=== PATIENT | male | born 1950 | race Caucasian/White ===

== ENCOUNTER → 2020-11-05 09:47 | Outpatient (CLI) | payer MEDICARE, BC, SELFPAY ==
--- NOTE | 2020-11-05 | DI.US.S_ITS ---
PROCEDURE: US ABDOMEN COMPLETE INDICATIONS: LIVER MASS TECHNIQUE: Real-time scanning was performed of the abdominal and retroperitoneal organs, with image documentation. COMPARISON: Outside Film, CT, CT ABDOMEN PELVIS WITHOUT CONTRAST, 03/25/2019, 14:57. Outside Film, CT, CT ABDOMEN PELVIS WITH CONTRAST, 08/15/2020, 14:37. [facility], US, US BIOPSY LIVER, 08/21/2020, 8:22. FINDINGS: Liver: Liver is normal in size and homogeneous in echotexture. Liver masses seen on prior imaging not visualized on today's examination. Gallbladder: Surgically absent. Biliary ducts: Intrahepatic bile ducts are non-dilated. Extrahepatic bile duct caliber measures 3.6 mm. Normal is 6-7 mm or less in diameter, or 10 mm or less post-cholecystectomy. Pancreas: Visualized portions of the pancreas are sonographically normal. Spleen: Spleen is normal in size and homogeneous in echotexture. Kidneys: Kidneys are normal in size and echotexture. Right kidney measures 11.8 cm long; left kidney measures 11.9 cm long. No hydronephrosis. No solid masses. Bilateral renal cyst redemonstrated, largest measuring up to 5.1 cm. Nonobstructing inferior pole right renal calcification redemonstrated. Aorta: Visualized aorta is normal in caliber at less than 3 cm. Iliacs: Proximal common iliac arteries are normal in caliber at less than 2.5 cm. IVC: Intrahepatic inferior vena cava is patent. Miscellaneous: No free abdominal fluid. IMPRESSION: 1. Previously visualized hepatic masses not seen on today's examination. If indicated, hepatic protocol CT or MR could be performed. 2. Bilateral renal cyst and nonobstructing right renal calcification redemonstrated. Dictated by: Gui [facility] Interpreted: Ok Bledsoe MD on 11/05/2020 at 11:22 Approved by: Ok Bledsoe M.D. on 11/05/2020 at 17:29
== END ==
PROVIDERS: PCP Family Medicine; Referring Provider Internal Medicine Gastroenterology; Visit Provider Internal Medicine Gastroenterology
DX: N28.1 Cyst of kidney, acquired (principal); K76.89 Other specified diseases of liver
CPT/HCPCS: 76700

== ENCOUNTER → 2020-11-30 16:10 | Outpatient (CLI) | payer MEDICARE, BC, SELFPAY ==
[2020-11-30 16:55] LABS: COVID19 -Nasal RAPID Negative (Negative)
== END ==
PROVIDERS: PCP Family Medicine; Visit Provider Physician Assistant
DX: Z20.822 Contact with and (suspected) exposure to COVID-19 (principal)
CPT/HCPCS: 87635

== ENCOUNTER 2020-12-01 09:05 | Day surgery (SDC) | payer MEDICARE, BC, SELFPAY ==
--- NOTE | 2020-12-01 | PATH_ITS ---
[facility] Accession Number: [id number] . 01 Material submitted: . PART A: esophagus - DISRUPTIVE SCHATZKI'S RING BIOPSIES PART B: gastrointestinal site - ANTRAL BIOPSY PART C: esophagus - MID ESOPHAGUS BIOPSIES PART D: colon - TRANSVERSE COLON POLYP BIOPSY . 01 Clinical history: . SDC . 02 Diagnosis: A. Schatzki's Ring, Biopsies: Squamocolumnar junctional mucosa with reactive features of reflux esophagitis. Negative for specialized intestinal metaplasia and fungal organisms on AB/PAS stain. Negative for dysplasia or malignancy. . B. Antrum, Biopsy: Gastric antral mucosa with mild chronic inflammation. Negative for Helicobacter organisms by immunohistochemistry. Negative for intestinal metaplasia. Negative for dysplasia or malignancy. . C. Mid Esophagus, Biopsies: Squamous mucosa with increased intraepithelial eosinophils (greater than 50 eosinophils). See comment. Negative for dysplasia and malignancy. . D. Transverse Colon Polyp, Biopsy: Tubular adenoma. [facility] 12/04/2020 1546 Local . 02 Comment: C. In the proper clinical setting, the histopathologic appearance would support a clinical impression of eosinophilic esophagitis. The differential diagnosis includes drug reaction, gastroesophageal reflux, and food allergies. . . 02 Electronically signed: . Alden Sousa MD, PhD, Pathologist NPI- [id number] . 01 Gross description: . Part A: DISRUPTIVE SCHATZKI'S RING BIOPSIES: Received in formalin are 4 fragment(s) of christian, soft tissue measuring 0.5 x 0.3 x 0.1 cm to 0.3 x 0.2 x 0.1 cm submitted entirely in 1 cassette(s) Part B: ANTRAL BIOPSY: Received in formalin are 2 fragment(s) of christian, soft tissue measuring 0.3 x 0.2 x 0.1 cm to 0.1 x 0.1 x 0.1 cm submitted entirely in 1 cassette(s) Part C: MID ESOPHAGUS BIOPSIES: Received in formalin are multiple fragment(s) of christian, soft tissue measuring 1.1 x 0.2 x 0.1 cm in aggregate submitted entirely in 1 cassette(s) Part D: TRANSVERSE COLON POLYP BIOPSY: Received in formalin are 2 fragment(s) of christian, soft tissue measuring 0.2 x 0.2 x 0.2 cm to 0.2 x 0.1 x 0.1 cm submitted entirely in 1 cassette(s) /LIUDMILA 12/02/2020 0144 Local . 02 Microscopic: . A. An AB/PAS stain is negative for goblet cells and fungal organisms. A control stain shows appropriate reactivity. . B. An immunohistochemical stain was performed to evaluate for Helicobacter organisms and is negative. The control stain showed appropriate reactivity. . C. An AB/PAS stain is performed to evaluate for fungal organisms and is negative. A control stain shows appropriate reactivity. . * This test was developed and its performance characteristics determined by [facility]. It has not been cleared or approved by the U.S. Food and Drug Administration. The FDA has determined that such clearance or approval is not necessary. This test is used for clinical purposes. It should not be regarded as investigational or for research. . 02 Pathologist provided ICD-10: K29.70, K20.0, D12.3 . 02 CPT . 812990, 054678, 654391, 445521, 022595, 613237, [id number] Performed at: 01 [facility] [address] [facility], [place], [place] [id number] MD Hood Riggs MD Phone: [phone] Performed at: 02 [facility] [address] [place], [place] [id number] MD Josie Kaur MD Phone: [phone]
[2020-12-01 09:33] VITALS: BP 144/84; PULSE 61; RESP 18; TEMP 36.3; O2SAT 100; BMI 28.8
[2020-12-01] MEDS: SODIUM CHLORIDE 0.9% 1,000 ML 84 ML IV (09:47)
--- NOTE | 2020-12-01 10:31 | PM.HP.1 ---
History of Present Illness History of Present Illness Date Patient Seen: 12/01/20 Time Patient Seen: 10:31 Chief complaint: SDC Narrative: I reviewed my H& P from October 12, 2020 no major changes. The patient did have an episode of significant esophageal food impaction in recent memory that took 5 hours to dislodge. Patient History Family & Social History Social History: household members spouse Tobacco & Substance use: Smoking Status Never smoker alcohol intake current alcohol intake frequency a few times a month Substance Use Type does not use Meds Home Medications and Allergies Home Medications Medication Instructions Recorded Confirmed Type No Known Home Medications 12/01/20 12/01/20 History Allergies Allergy/AdvReac Type Severity Reaction Status Date / Time Penicillins Allergy Verified 12/01/20 09:30 Review of Systems Review of Systems ROS: Yes All systems reviewed with the patient and are negative except as otherwise documented Exam Vital Signs (past 8 hours): - 12/01/20 09:33 Temperature 97.4 F L Pulse Rate 61 Respiratory Rate 18 Blood Pressure 144/84 H Pulse Oximetry 100 Oxygen Delivery Method Room Air Const General: cooperative and comfortable Orientation: alert HENOH Head: normocephalic Ears: external ears normal Nose: external nose normal Face and sinus: normal facial exam Mouth: oral mucosae normal Eyes General: appearance normal, both eyes and all related structures Neck Neck: normal visual inspection Chest Chest: normal inspection of the chest Resp Effort & Inspection: normal respiratory effort Auscultation: clear to auscultation bilaterally Cardio Rate: regular rate Rhythm: regular rhythm Heart Sounds: no murmurs GI Inspection: normal to inspection Palpation: soft and No tender Auscultation: normal bowel sounds Skin General: no rashes or lesions noted and No jaundice Neuro General: patient alert and moves all extremities Cognition: normal cognition Speech: speech normal Extrem General: no pedal edema Psych Appearance: grossly normal Assessment & Plan Assessment & Plan narrative: History of dysphagia. Personal history of diverticulitis and abnormal imaging. EGD and colonoscopy are pursued today. Time Spent With Patient Critical Care time: I spent a total of [] minutes of critical care time on this patient's care today; this time is exclusive of procedural time.
--- NOTE | 2020-12-01 10:32 | PM.PREOP ---
Pre-operative Note COVID-19 COVID-19 status: Negative Result date/Date tested (Pos, Neg/Pending): 11/30/20 Interval Note History & Physical reviewed/Exam performed by Physician: Yes Changes to H&P: No ASA Class (for procedural sedation): II
--- NOTE | 2020-12-01 11:23 | PM.OP.EC ---
Operative Date/Time/Diagnoses Date of procedure: 12/01/20 Time of procedure: 11:23 Pre-op diagnosis: Dysphagia recent diverticulitis abnormal imaging Post-op diagnosis: same Procedure & Clinicians Study performed: EGD with biopsy and balloon dilatation Colonoscopy with cold forceps polypectomy Same procedure as scheduled: Yes Indications: Dysphagia abnormal imaging recent diverticulitis Surgeon: Smooth Lee Procedure Notes SCOAP/Timeout: Done Procedure in detail: After the risks and benefits were explained, written and verbal informed consent was obtained. The patient was brought into the procedure room and placed into the left lateral decubitus position. Please see nurse payroll assistant sedation notes. The scope was introduced into the mouth through the bite block and advanced under direct visualization to the 2nd portion of the duodenum. The scope was slowly withdrawn carefully examining the mucosa for any defects or lesions. Retroflexed views were accomplished in the stomach. The stomach was decompressed, the scope was then removed from the patient who tolerated the procedure well. Patient was then turned around a digital rectal examination accomplished grade 3 and grade 4 internal nonbleeding nonthrombosed hemorrhoids were noted. The scope was introduced into the rectum and advanced to the cecum as identified by the appendiceal orifice and ileocecal valve. The scope was slowly withdrawn to carefully examine the mucosa for any defects or lesions. Multiple direct views were made through the dentate line for exclusion of pathology the colon was decompressed scope removed from the patient who tolerated the procedure well. Adult colonoscope Bowel prep adequate Scope withdrawal time: 8 minutes Sedation minutes: 35 Complications: none Impression: 1. Duodenum no overt pathology appreciated from the bulb through to the 2nd portion. There was however a large duodenal diverticulum in the region of the major papilla. 2. Stomach: Patient had erythema in the antrum. No ulcers no mass lesions no outlet obstruction. Antral biopsies were taken for exclusion of Helicobacter or other pathology. Otherwise retroflexed views of the LES were unremarkable. 3. Esophagus: The patient had a Schatzki's ring at the level of GE junction which was at approximately 38 cm from the incisors. We attempted to dilate with a 12-15 mm balloon assembly. The 1st balloon perforated at the 12 mm erica. We had clearly dilated a small amount. I passed a 2nd balloon and this also perforated even before we are able to get up to the full 12 mm setting. I therefore abandoned further balloon dilatation and used biopsy forceps to perform disruptive biopsies multiple times at the level of the ring that had already been disrupted by the balloon. Overall a dilatation affect appear to be mild to moderate. There was a very subtle sliding hiatal hernia present. The more proximal esophagus demonstrated numerous circumferential tight rings suggestive of underlying eosinophilic esophagitis and therefore midesophageal biopsies were taken at random as well. 4. Colon: There was some scattered diverticula in the left colon. No mass lesions. There was a diminutive polyp perhaps 4 mm removed with cold forceps in the transverse. The patient had grade 3 to grade 4 non thrombosed nonbleeding hemorrhoids. Endoscopic diagnosis 1. Duodenal diverticulum 2. Gastropathy 3. Subtle sliding hiatal hernia 4. Schatzki's ring status post balloon dilatation and disruptive biopsies 5. Ringed esophagus 6. Diverticulosis 7. Grade 3 to grade 4 hemorrhoids 8. Colon polyp Post-procedure Plan for aftercare: 1. Await histopathology 2. Continue well chewed food in small bites. 3. Follow up GI clinic in 6 weeks to review response 4. Repeat colonoscopy 5 years. Disposition: PACU
[2020-12-01 11:27] VITALS: BP 116/65; PULSE 52; RESP 11; TEMP 36.2; O2SAT 98
[2020-12-01 11:32] VITALS: BP 126/70; PULSE 53; RESP 11; O2SAT 99
[2020-12-01 11:42] VITALS: BP 145/72; PULSE 58; RESP 16; O2SAT 98
[2020-12-01 11:53] VITALS: BP 148/80; PULSE 50; RESP 11; TEMP 36.7; O2SAT 99
--- NOTE | 2020-12-01 11:56 | SUR.PHASEI ---
Patient drinking orange juice without difficulty but states that his throat kemp a bit; report given to Sharonda for Phase II.
[2020-12-01 12:15] VITALS: BP 158/86; PULSE 54; RESP 16; TEMP 37.3; O2SAT 99
== END 2020-12-01 12:18 | disposition home or self-care (01) ==
PROVIDERS: PCP Family Medicine; Referring Provider Internal Medicine Gastroenterology; Visit Provider Internal Medicine Gastroenterology
PROC: 0DJ08ZZ Inspection of Upper Intestinal Tract, Via Natural or Artificial Opening Endoscopic (ICD-10-PCS; CPT 43235; principal; 2020-12-01 10:30)
PROC: 0DJD8ZZ Inspection of Lower Intestinal Tract, Via Natural or Artificial Opening Endoscopic (ICD-10-PCS; CPT 45378; 2020-12-01 10:30)
DX: Z87.19 Personal history of other diseases of the digestive system (principal); R13.10 Dysphagia, unspecified; K64.2 Third degree hemorrhoids; K57.30 Diverticulosis of large intestine without perforation or abscess without bleeding; K22.2 Esophageal obstruction; K44.9 Diaphragmatic hernia without obstruction or gangrene; K31.9 Disease of stomach and duodenum, unspecified; E11.9 Type 2 diabetes mellitus without complications
CPT/HCPCS: 43249; 43239; 45380; J2704